=== PATIENT | male | born 1990 | race African-American/Black ===

== ENCOUNTER 2017-06-16 21:53 | Inpatient (IN) | payer OTHER ==
[2017-06-16] MEDS ORDERED: ONDANSETRON 4 MG/2 ML VIAL IVPB ONE (22:37)
[2017-06-16] MEDS ORDERED: SODIUM CHLORIDE 1,000 ML IV STA (22:37)
[2017-06-16] MEDS ORDERED: morphine CARPU-JECT 4 MG/1 ML DISP.SYRIN IVPUSH ONE (22:37)
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
[2017-06-16] MEDS ORDERED: ONDANSETRON 4 MG/2 ML VIAL ONE ×2 (22:58→23:15)
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
[2017-06-16] MEDS ORDERED: morphine CARPU-JECT 4 MG/1 ML DISP.SYRIN ONE (23:14)
[2017-06-16 23:18] LABS: BASOPHIL 0.5 % (0-2.0); EOSINOPHIL 1.1 % (0-4.5); MCH 26.1 pg (25.7-33.7); MEAN CELL VOLUME 78.9 fl (80-96); MEAN PLT VOLUME 8.4 fl (7.5-11.1); NEUTROPHILS 64.5 % (42.8-82.8); PLATELET COUNT 196 K/MM3 (134-434); RDW 13.7 % (11.9-15.9); WHITE BLOOD COUNT 11.3 K/mm3 (4.0-10.0)
[2017-06-16 23:29] LABS: URINE APPEARANCE CLOUDY; URINE BILIRUBIN NEGATIVE (NEGATIVE); URINE BLOOD 3+ (NEGATIVE); URINE GLUCOSE (UA) NEGATIVE (NEGATIVE); URINE KETONE NEGATIVE (NEGATIVE); URINE LEUK ESTERASE TRACE (NEGATIVE); URINE NITRITE NEGATIVE (NEGATIVE); URINE UROBILINOGEN NEGATIVE mg/dL (0.2-1.0)
[2017-06-16 23:36] LABS: URINE COLOR AMBER; URINE PROTEIN 2+ (NEGATIVE)
[2017-06-16 23:38] LABS: URINE MUCUS RARE; URINE RBC 2122 /hpf (0-3); URINE WBC 23 /hpf (3-5)
[2017-06-16 23:44] LABS: ALBUMIN 4.2 g/dl (3.4-5.0); ALK PHOS 71 U/L (45-117); ANION GAP 8 (8-16); BILIRUBIN,TOTAL 0.2 mg/dL (0.2-1.0); CALCIUM 9.3 mg/dL (8.5-10.1); CO2 30 mmol/L (21-32); CREATININE 1.6 mg/dL (0.7-1.3); GLUCOSE,RANDOM 91 mg/dL (74-106); SGOT/AST 25 U/L (15-37); SGPT/ALT 34 U/L (12-78); TOT PROT 7.7 g/dl (6.4-8.2)
[2017-06-17] MEDS ORDERED: morphine CARPU-JECT 4 MG/1 ML DISP.SYRIN IVPUSH ONE (00:50)
[2017-06-17] MEDS ORDERED: SODIUM CHLORIDE 1,000 ML IV SCH (01:00)
[2017-06-17] MEDS ORDERED: CEFTRIAXONE 1 GM in DEXTROSE 5%-WATER - 50 ML IVPB ONE (01:42)
[2017-06-17] MEDS ORDERED: morphine CARPU-JECT 4 MG/1 ML DISP.SYRIN IVPUSH PRN (01:49)
[2017-06-17] MEDS ORDERED: DEXTROSE 5%-0.45% SALINE 1,000 ML IV SCH (02:00)
[2017-06-17] MEDS ORDERED: CEFTRIAXONE 50 ML ONE (02:08)
[2017-06-17 05:48] VITALS: BMI 25.4
[2017-06-17 08:14] LABS: BASOPHIL 0.3 % (0-2.0); MCH 25.8 pg (25.7-33.7); MCHC 32.8 g/dl (32.0-35.9); MEAN CELL VOLUME 78.8 fl (80-96); MEAN PLT VOLUME 8.4 fl (7.5-11.1); NEUTROPHILS 58.4 % (42.8-82.8); PLATELET COUNT 190 K/MM3 (134-434); RDW 13.4 % (11.9-15.9); WHITE BLOOD COUNT 8.7 K/mm3 (4.0-10.0)
[2017-06-17 08:50] LABS: ALBUMIN 3.8 g/dl (3.4-5.0); ALK PHOS 70 U/L (45-117); ANION GAP 5 (8-16); BILIRUBIN,TOTAL 0.5 mg/dL (0.2-1.0); CALCIUM 8.8 mg/dL (8.5-10.1); CO2 31 mmol/L (21-32); CREATININE 1.3 mg/dL (0.7-1.3); GLUCOSE,RANDOM 69 mg/dL (74-106); SGOT/AST 24 U/L (15-37); SGPT/ALT 29 U/L (12-78)
[2017-06-17] MEDS ORDERED: cefTRIAXone SODIUM 1 GM VIAL ONE (09:43)
[2017-06-17] MEDS ORDERED: DEXTROSE 5%-WATER - 50 ML IVPB ONE (09:43)
[2017-06-17] MEDS ORDERED: CEFTRIAXONE 1 GM in DEXTROSE 5%-WATER - 50 ML IVPB SCH (10:00)
[2017-06-17] MEDS ORDERED: CEFTRIAXONE 1 GM in DEXTROSE 5%-WATER - 100 ML IVPB SCH (10:00)
[2017-06-17 15:53] VITALS: BP 118/57; PULSE 73; TEMP 98.1
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
== END 2017-06-17 16:52 | disposition left against medical advice (07) | DRG 465 ==
LOC: JER 21:53 → JERBED 06-17 01:45 → J5S 06-17 03:47
PROVIDERS: ADMIT Internal Medicine; ATTEND Internal Medicine
DX: N13.30 Unspecified hydronephrosis (principal); R10.9 Unspecified abdominal pain
CPT/HCPCS: 36415; 74176-TC; 80053; 81003; 81015; 83690; 85025; 87086; 99284-25

== ENCOUNTER 2017-07-01 22:55 | Emergency (ER) | payer OTHER ==
[2017-07-02 00:32] VITALS: BP 148/83; PULSE 81; TEMP 98.7; BMI 24.3
[2017-07-02] MEDS ORDERED: BUPIVACAINE HCL 0.25% 125 MG/50 ML VIAL INF ONE (01:15)
[2017-07-02] MEDS ORDERED: LIDOCAINE HCL 1%, 10 MG/ML (50 mL VIAL) INF ONE (01:15)
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
[2017-07-02] MEDS ORDERED: BUPIVACAINE HCL/PF 0.5% (5MG/ML) 10 ML VIAL ONE (01:22)
[2017-07-02] MEDS ORDERED: LIDOCAINE HCL 1%, 10 MG/ML (20ML VIAL) ONE (01:22)
[2017-07-02] MEDS ORDERED: KETOROLAC TROMETHAMINE 30 MG/1 ML VIAL IM ONE (01:24)
[2017-07-02] MEDS ORDERED: KETOROLAC TROMETHAMINE 30 MG/1 ML VIAL ONE (01:24)
== END 2017-07-02 02:00 | disposition home or self-care (01) ==
LOC: JER 22:55
PROC: 3E0233Z Introduction of Anti-inflammatory into Muscle, Percutaneous Approach (ICD-10-PCS; principal; 2017-07-01)
DX: K08.89 Other specified disorders of teeth and supporting structures (principal)
CPT/HCPCS: 99281-25

== ENCOUNTER 2017-08-13 21:19 | Emergency (ER) | payer OTHER ==
--- NOTE | 2017-08-13 21:44 | PDOC ---
Rapid Medical Evaluation Time Seen by Provider: 08/13/17 21:41 Medical Evaluation: Allergies Allergy/AdvReac Type Severity Reaction Status Date / Time No Known Allergies Allergy Verified 07/02/17 00:30 08/13/17 21:42 I have performed a brief in-person evaluation of this patient. The patient presents with a chief complaint of: hematuria Pertinent physical exam findings: right flank, pain on urination I have ordered the following: cbc, cmp, ua The patient will proceed to the ED for further evaluation. Discharge Disposition - Diagnosis Flank pain - Referrals Referrals: Kishan Daugherty MD [Primary Care Provider] - - Patient Instructions - Post Discharge Activity
[2017-08-13 21:46] VITALS: BP 117/70; PULSE 98; TEMP 98.1; BMI 25.8
[2017-08-13 22:06] LABS: URINE APPEARANCE CLOUDY; URINE BILIRUBIN NEGATIVE (NEGATIVE); URINE BLOOD 2+ (NEGATIVE); URINE COLOR YELLOW; URINE GLUCOSE (UA) NEGATIVE (NEGATIVE); URINE KETONE NEGATIVE (NEGATIVE); URINE NITRITE NEGATIVE (NEGATIVE); URINE PROTEIN 3+ (NEGATIVE); URINE UROBILINOGEN 4.0 E.U/dl mg/dL (0.2-1.0)
[2017-08-13 22:07] LABS: BASOPHIL 0.6 % (0-2.0); EOSINOPHIL 1.3 % (0-4.5); MCHC 32.6 g/dl (32.0-35.9); MEAN CELL VOLUME 79.8 fl (80-96); MEAN PLT VOLUME 8.6 fl (7.5-11.1); NEUTROPHILS 60.9 % (42.8-82.8); PLATELET COUNT 220 K/MM3 (134-434); RDW 14.2 % (11.9-15.9); WHITE BLOOD COUNT 9.4 K/mm3 (4.0-10.0)
[2017-08-13 22:09] LABS: URINE MUCUS FEW; URINE RBC 2040 /hpf (0-3); URINE WBC 40 /hpf (3-5)
--- NOTE | 2017-08-13 22:14 | PDOC ---
History of Present Illness - General Chief Complaint: Hematuria Stated Complaint: HEMATURIA Time Seen by Provider: 08/13/17 21:41 Past History - Past Medical History Allergies/Adverse Reactions: Allergies Allergy/AdvReac Type Severity Reaction Status Date / Time No Known Allergies Allergy Verified 08/13/17 21:46 Home Medications: Ambulatory Orders NK [No Known Home Medication] 06/17/17 Anemia: No Asthma: No Cancer: No Cardiac Disorders: No CVA: No COPD: No DVT: No Dementia: No Diabetes: No Dialysis: No GI Disorders: No Disorders: Yes (damaged ureter) HTN: No Hypercholesterolemia: No Kidney Stones: No Liver Disease: No Psychiatric Problems: No Seizures: No Thyroid Disease: No Lung CA: No - Surgical History Abdominal Surgery: No Appendectomy: No Cardiac Surgery: No Cholecystectomy: No Gastric Stapling: No GI Surgery: No Lung Surgery: No Neurologic Surgery: No - Suicide/Smoking/Psychosocial Hx Smoking History: Never smoked Have you smoked in the past 12 months: No Information on smoking cessation initiated: No Hx Alcohol Use: No Drug/Substance Use Hx: Yes Substance Use Type: Marijuana *Physical Exam - Vital Signs Last Vital Signs Temp Pulse Resp BP Pulse Ox 98.1 F 98 H 18 117/70 98 08/13/17 21:43 08/13/17 21:43 08/13/17 21:43 08/13/17 21:43 08/13/17 21:43 ED Treatment Course - LABORATORY CBC & Chemistry Diagram: 08/13/17 22:00 08/13/17 22:00 - ADDITIONAL ORDERS Additional order review: Laboratory Results 08/13/17 22:00 Urine Color Yellow Urine Appearance Cloudy Urine pH 7.0 Ur Specific [place] 1.025 Urine Protein 3+ H Urine Glucose (UA) Negative Urine Ketones Negative Urine Blood 2+ H Urine Nitrite Negative Urine Bilirubin Negative Urine Urobilinogen 4.0 e.u/dl Urine Mucus Few 08/13/17 22:00 RBC 5.62 H MCV 79.8 L MCHC 32.6 RDW 14.2 MPV 8.6 Neutrophils % 60.9 Lymphocytes % 32.9 Monocytes % 4.3 Eosinophils % 1.3 Basophils % 0.6 *DC/Admit/Observation/Transfer Diagnosis at time of Disposition: Flank pain - Referrals Referrals: Kishan Daugherty MD [Primary Care Provider] - - Patient Instructions - Post Discharge Activity - Attestations Physician Attestion: 08/13/17 22:14 I, Dr. Dylan Joyce, attest that this document has been prepared under my direction and personally reviewed by me in its entirety. I further attest, that it accurately reflects all work, treatment, procedures and medical decision -making performed by me.
--- NOTE | 2017-08-13 22:18 | PDOC ---
Attending Attestation - Resident Resident Name: Rafael Roman - ED Attending Attestation I have performed the following: I have examined & evaluated the patient, The case was reviewed & discussed with the resident, I agree w/resident's findings & plan, Exceptions are as noted - HPI HPI: 08/13/17 22:18 Flank Pain and Hematuria - Physicial Exam PE: 08/13/17 22:18 VSS/NAD - Medical Decision Making 08/13/17 22:18 I, Dr. Dylan Joyce, attest that this document has been prepared under my direction and personally reviewed by me in its entirety. I further attest, that it accurately reflects all work, treatment, procedures and medical decision -making performed by me. 08/13/17 22:[address] Rafael Roman's Assessment and Plan
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
[2017-08-13] MEDS ORDERED: SODIUM CHLORIDE 1,000 ML IV STA (22:32)
[2017-08-13 22:38] LABS: ANION GAP 6 (8-16); CALCIUM 8.6 mg/dL (8.5-10.1); CO2 30 mmol/L (21-32); CREATININE 1.4 mg/dL (0.7-1.3); GLUCOSE,RANDOM 126 mg/dL (74-106); SGOT/AST 23 U/L (15-37); SGPT/ALT 34 U/L (12-78)
[2017-08-13 22:40] LABS: ALK PHOS 68 U/L (45-117); BILIRUBIN,TOTAL 0.7 mg/dL (0.2-1.0); TOT PROT 7.4 g/dl (6.4-8.2)
[2017-08-14] MEDS ORDERED: AZITHROMYCIN 500 MG TABLET PO ONE (00:34)
[2017-08-14] MEDS ORDERED: AZITHROMYCIN 500 MG TABLET ONE (00:44)
[2017-08-14] MEDS ORDERED: cefTRIAXone SODIUM 1 GM VIAL IM ONE (00:45)
[2017-08-14 09:17] LABS: URINE LEUK ESTERASE 1+ (NEGATIVE)
== END 2017-08-14 01:15 | disposition home or self-care (01) ==
LOC: JER 21:19
PROC: 3E0337Z Introduction of Electrolytic and Water Balance Substance into Peripheral Vein, Percutaneous Approach (ICD-10-PCS; principal; 2017-08-13)
PROC: 3E02329 Introduction of Other Anti-infective into Muscle, Percutaneous Approach (ICD-10-PCS; 2017-08-13)
DX: N34.2 Other urethritis (principal); Z87.828 Personal history of other (healed) physical injury and trauma
CPT/HCPCS: 36415; 74176; 80053; 81003; 81015; 85025; 99281-25

== ENCOUNTER 2017-10-10 14:08 | Emergency (ER) | payer OTHER ==
[2017-10-10 14:17] VITALS: BP 127/76; PULSE 95; TEMP 98.1; BMI 24.3
--- NOTE | 2017-10-10 14:19 | PDOC ---
Rapid Medical Evaluation Time Seen by Provider: 10/10/17 14:14 Medical Evaluation: Allergies Allergy/AdvReac Type Severity Reaction Status Date / Time No Known Allergies Allergy Verified 08/13/17 21:46 10/10/17 14:15 I have performed a brief in-person evaluation of this patient. The patient presents with a chief complaint of: "I have blood in my urine." h/o uretal stent with multiple infections Pertinent physical exam findings: right flank tenderness I have ordered the following: UA, CBC, CMP The patient will proceed to the ED for further evaluation. Discharge Disposition - Diagnosis Flank pain - Referrals - Patient Instructions - Post Discharge Activity
[2017-10-10 14:43] LABS: BASO % 0.3 % (0-2.0); EOS % 0.9 % (0-4.5); HEMATOCRIT 47.2 % (35.4-49); HEMOGLOBIN 15.2 GM/dL (11.7-16.9); LYMPH % 29.1 % (8-40); MCH 25.6 pg (25.7-33.7); MCHC 32.2 g/dl (32.0-35.9); MEAN CELL VOLUME 79.4 fl (80-96); MEAN PLT VOLUME 8.1 fl (7.5-11.1); MONO % 4.3 % (3.8-10.2); NEUT % 65.4 % (42.8-82.8); PLATELET COUNT 232 K/MM3 (134-434); RBC 5.94 M/mm3 (4.00-5.60); RDW 13.6 % (11.9-15.9); WHITE BLOOD COUNT 6.6 K/mm3 (4.0-10.0)
[2017-10-10 15:01] LABS: ALBUMIN 4.4 g/dl (3.4-5.0); ALK PHOS 67 U/L (45-117); ANION GAP 7 (8-16); BILIRUBIN,TOTAL 0.4 mg/dL (0.2-1.0); BLOOD UREA NITROGEN 19 mg/dL (7-18); CALCIUM 8.9 mg/dL (8.5-10.1); CHLORIDE 107 mmol/L (98-107); CO2 26 mmol/L (21-32); CREATININE 1.2 mg/dL (0.7-1.3); GLUCOSE,RANDOM 87 mg/dL (74-106); POTASSIUM 4.2 mmol/L (3.5-5.1); SGOT/AST 20 U/L (15-37); SGPT/ALT 27 U/L (12-78); SODIUM 140 mmol/L (136-145); TOT PROT 7.8 g/dl (6.4-8.2)
== END 2017-10-10 19:59 | disposition home or self-care (01) ==
LOC: JER 14:08
DX: R10.31 Right lower quadrant pain (principal); Z96.0 Presence of urogenital implants
CPT/HCPCS: 36415; 80053; 85025; 87086; 99281-25

== ENCOUNTER 2017-10-20 23:24 | Emergency (ER) | payer OTHER ==
[2017-10-20 23:27] VITALS: BP 143/71; PULSE 89; TEMP 97.9; BMI 24.3
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
[2017-10-21 02:21] LABS: BASO % 0.6 % (0-2.0); EOS % 1.5 % (0-4.5); HEMATOCRIT 45.7 % (35.4-49); HEMOGLOBIN 15.1 GM/dL (11.7-16.9); LYMPH % 42.1 % (8-40); MCH 26.2 pg (25.7-33.7); MCHC 32.9 g/dl (32.0-35.9); MEAN CELL VOLUME 79.7 fl (80-96); MEAN PLT VOLUME 8.3 fl (7.5-11.1); MONO % 6.7 % (3.8-10.2); NEUT % 49.1 % (42.8-82.8); PLATELET COUNT 218 K/MM3 (134-434); RBC 5.74 M/mm3 (4.00-5.60); RDW 13.4 % (11.9-15.9); WHITE BLOOD COUNT 8.1 K/mm3 (4.0-10.0)
[2017-10-21 02:46] LABS: ALBUMIN 4.1 g/dl (3.4-5.0); ALK PHOS 67 U/L (45-117); ANION GAP 9 (8-16); BILIRUBIN,TOTAL 0.3 mg/dL (0.2-1.0); BLOOD UREA NITROGEN 18 mg/dL (7-18); CALCIUM 9.4 mg/dL (8.5-10.1); CHLORIDE 104 mmol/L (98-107); CO2 28 mmol/L (21-32); CREATININE 1.1 mg/dL (0.7-1.3); GLUCOSE,RANDOM 87 mg/dL (74-106); POTASSIUM 4.1 mmol/L (3.5-5.1); SGOT/AST 15 U/L (15-37); SGPT/ALT 26 U/L (12-78); SODIUM 141 mmol/L (136-145); TOT PROT 7.6 g/dl (6.4-8.2)
[2017-10-21] MEDS ORDERED: CEFTRIAXONE 1 GM in DEXTROSE 5%-WATER - 50 ML IVPB ONE (03:30)
[2017-10-21 03:31] LABS: URINE APPEARANCE CLEAR; URINE BILIRUBIN NEGATIVE (NEGATIVE); URINE BLOOD 2+ (NEGATIVE); URINE COLOR YELLOW; URINE GLUCOSE (UA) NEGATIVE (NEGATIVE); URINE KETONE NEGATIVE (NEGATIVE); URINE NITRITE NEGATIVE (NEGATIVE); URINE UROBILINOGEN 4.0 E.U/dl mg/dL (0.2-1.0)
[2017-10-21] MEDS ORDERED: DOXYCYCLINE HYCLATE 100 MG CAPSULE PO ONE (03:31)
[2017-10-21 03:32] LABS: URINE LEUK ESTERASE 3+ (NEGATIVE); URINE PROTEIN 1+ (NEGATIVE)
[2017-10-21] MEDS ORDERED: AZITHROMYCIN 1 GM PACKET PO ONE (03:34)
[2017-10-21] MEDS ORDERED: PHENAZOPYRIDINE HCL 100 MG TABLET (FP) PO ONE (03:36)
[2017-10-21] MEDS ORDERED: PHENAZOPYRIDINE HCL 100 MG TABLET (FP) ONE ×2 (03:47→04:08)
[2017-10-21] MEDS ORDERED: LIDOCAINE HCL 1%, 10 MG/ML (20ML VIAL) ONE (03:57)
[2017-10-21] MEDS ORDERED: AZITHROMYCIN 500 MG TABLET ONE (04:08)
== END 2017-10-21 04:12 | disposition home or self-care (01) ==
LOC: JER 23:24
DX: N39.0 Urinary tract infection, site not specified (principal); N34.2 Other urethritis
CPT/HCPCS: 36415; 80053; 81003; 85025; 87491; 87591; 96372; 99282-25

== ENCOUNTER 2017-11-11 11:35 | Emergency (ER) | payer OTHER ==
[2017-11-11 11:53] VITALS: BMI 24.3
[2017-11-11] MEDS ORDERED: ONDANSETRON 4 MG/2 ML VIAL IVPUSH ONE (12:46)
[2017-11-11] MEDS ORDERED: SODIUM CHLORIDE 1,000 ML IV SCH (13:00)
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
--- NOTE | 2017-11-11 13:15 | PDOC ---
History of Present Illness - General Chief Complaint: Pain, Acute Stated Complaint: KIDNEY PAIN Time Seen by Provider: 11/11/17 12:25 History Source: Patient Exam Limitations: No Limitations - History of Present Illness Initial Comments: 11/11/17 12:55 26 y/o M with PMH R ureteral stent revision (Dat Guillermo, last revision at [facility] by Dr. Wayne) s/p surya (2014), who presents to the ED c/o R flank pain over the past day. As per pt, yesterday he suddenly developed constant, R sided, 10/10 throbbing flank pain that radiated to his back. His pain was exacerbated with movement, and was not alleviated with Tylenol. Pt states that he was in pain "during the whole cab ride to the hospital." During this time, he also had a subjective fever. Over the past month, pt has also endorsed intermittent dysuria and hematuria. Pt denies MORROW, chills, SOB, abdominal pain, or changes in bowel function. PMH: denies hx nephrolithiasis PsxH: R ureteral stent revision (Dat Guillermo, last revision at [facility] by Dr. Wayne) s/p surya (2015) meds: denies allergies: NKDA FH: denies SH: works at [employer]. denies cigarette use, social drinker, smokes marijuana daily Past History - Past Medical History Allergies/Adverse Reactions: Allergies Allergy/AdvReac Type Severity Reaction Status Date / Time No Known Allergies Allergy Verified 11/11/17 11:48 Home Medications: Ambulatory Orders Levofloxacin [Levaquin] 750 mg PO DAILY #7 tablet 11/11/17 Anemia: No Asthma: No Cancer: No Cardiac Disorders: No CVA: No COPD: No DVT: No Dementia: No Diabetes: No Dialysis: No GI Disorders: No Disorders: Yes (damaged ureter, R STENT) HTN: No Hypercholesterolemia: No Kidney Stones: No Liver Disease: No Psychiatric Problems: No Seizures: No Thyroid Disease: No Lung CA: No - Surgical History Abdominal Surgery: No Appendectomy: No Cardiac Surgery: No Cholecystectomy: No Gastric Stapling: No GI Surgery: No Lung Surgery: No Neurologic Surgery: No - Suicide/Smoking/Psychosocial Hx Smoking History: Never smoked Have you smoked in the past 12 months: No Hx Alcohol Use: No Drug/Substance Use Hx: No Substance Use Type: None Review of Systems - Review of Systems Able to Perform ROS?: Yes Constitutional: Yes: Fever ABD/GI: Yes: Other (R flank pain) : Yes: Dysuria, Hematuria *Physical Exam - Vital Signs Last Vital Signs Temp Pulse Resp BP Pulse Ox 98.4 F 94 H 17 122/84 96 11/11/17 11:48 11/11/17 11:48 11/11/17 11:48 11/11/17 11:48 11/11/17 11:48 - Physical Exam General Appearance: Yes: Mild Distress, Other (appears uncomfortable) HEENT: positive: EOMI, JUNE, Pharynx Normal Neck: positive: Supple Respiratory/Chest: positive: Lungs Clear, Normal Breath Sounds Cardiovascular: positive: Regular Rhythm, Regular Rate, Tachycardia Vascular Pulses: Dorsalis-Pedis (R): 2+, Doralis-Pedis (L): 2+ Gastrointestinal/Abdominal: positive: Other (R flank TTP, + R CVA tenderness) Neurologic: positive: hospice team lead II-XII NML intact ED Treatment Course - LABORATORY CBC & Chemistry Diagram: 11/11/17 13:08 11/11/17 13:08 - RADIOLOGY Radiology Studies Ordered: Category Date Time Status SPIRAL- RENAL-STONE CT [CT] Stat CT Scan 11/11/17 12:45 Ordered Medical Decision Making - Medical Decision Making 11/11/17 13:22 26 y/o M with PMH R ureteral stent revision (Dat Guillermo, last revision at [facility] by Dr. Wayne) s/p surya (2015), who presents to the ED c/o R flank pain over the past day. Pt with hematuria and dysuria over the past month. Currenly, pt mildly tachycardic (94), however afebrile , hemodynamically stable. Current differentials include pyelonephritis, obstruction from R kidney stone, damage to R ureteral stent. Will evaluate with urine studies, lipase to r /o acute pancreatitis as pt with flank pain radiating to back. Will also get spiral renal CT to evaluate for any stone, block, possible hydronephrosis. Will order the following UCx UA CBC CMP Lipase Spiral-renal CT Will give the following Morphine for pain Zofran x 1 If needs more zofran, recommend EKG IV NS 100 cc/hr 11/11/17 14:59 Most likely pyelonephritis. Pt given Levaquin 750mgx [address] report - 11/11/17 15:37 urine returned 2+ urine protein, 3+ blood, 2+ leuk esterase, 21 WBCs 11/11/17 16:58 complicated pyelo, CT reveals increased R sided hydronephrosis. Will consult Dr. Heydi Daugherty- urology Blood cx - to be drawn, will give zosyn 3.375 x 1 11/11/17 17:[address] Mehdi boswell for admission. Med-surg 11/11/17 23:49 Pt leaving AMA. Risks associated with departure discussed, expressed understanding. Form filled out The patient presented with pyelonephritis. I am concerned that this may be fatal , lead to worsening infection, sepsis. The patient has verbalized understanding of my concerns. The patient is clinically sober and appears free from distracting injury. The patient appears to be have intact insight, judgment, and reason. In my opinion, this patient has the capacity to make decisions. The risks of leaving against medical advice without further evaluation treatment were discussed with the patient. These risks include , permanent disability. The patient indicated understanding of these risks and appeared to have the capacity to make this decision. The patient is unwilling to stay for his admission which would include IV antibiotics. He is unwilling to remain for further monitoring. He is refusing further care and leaving against medical advice. I am unable to convince the patient to stay. I have asked the patient to return as soon as possible to complete his evaluation. *DC/Admit/Observation/Transfer Diagnosis at time of Disposition: Pyelonephritis, acute - Discharge Dispostion Disposition: AGAINST MEDICAL ADVICE Condition at time of disposition: Guarded Admit: No - Prescriptions Prescriptions: Levofloxacin [Levaquin] 750 mg PO DAILY #7 tablet - Referrals Referrals: Kishan Daugherty MD [Primary Care Provider] - - Patient Instructions - Post Discharge Activity Activity Comments: 11/11/17 23:43 You were in the hospital because you had a urinary infection that spread to your kidney. We recommend that you drink plenty of fluids and rest. While there is no equivalent to the IV antibiotic you would receive in the hospital, since you are leaving against medical advice, we would like you to take an antibiotic Levaquin - one pill a day for the next 7 days for your condition. Please follow up with your primary care doctor/urologist in a week. If you develop fever, chills, or severe abdominal pain, please return to the hospital.
[2017-11-11 13:25] LABS: BASO % 0.6 % (0-2.0); EOS % 3.7 % (0-4.5); HEMATOCRIT 45.8 % (35.4-49); HEMOGLOBIN 14.7 GM/dL (11.7-16.9); LYMPH % 28.5 % (8-40); MCH 25.5 pg (25.7-33.7); MCHC 32.1 g/dl (32.0-35.9); MEAN CELL VOLUME 79.2 fl (80-96); MEAN PLT VOLUME 8.1 fl (7.5-11.1); MONO % 13.3 % (3.8-10.2); NEUT % 53.9 % (42.8-82.8); PLATELET COUNT 197 K/MM3 (134-434); RBC 5.78 M/mm3 (4.00-5.60); RDW 13.6 % (11.9-15.9); WHITE BLOOD COUNT 4.3 K/mm3 (4.0-10.0)
[2017-11-11] MEDS ORDERED: morphine CARPU-JECT 2 MG/1 ML DISP.SYRIN IVPUSH ONE (13:25)
[2017-11-11 14:22] LABS: ALBUMIN 3.9 g/dl (3.4-5.0); ANION GAP 8 (8-16); BILIRUBIN,TOTAL 0.4 mg/dL (0.2-1.0); BLOOD UREA NITROGEN 14 mg/dL (7-18); CALCIUM 8.9 mg/dL (8.5-10.1); CHLORIDE 104 mmol/L (98-107); CO2 28 mmol/L (21-32); CREATININE 1.3 mg/dL (0.7-1.3); GLUCOSE,RANDOM 81 mg/dL (74-106); SGOT/AST 22 U/L (15-37); SGPT/ALT 24 U/L (12-78); SODIUM 140 mmol/L (136-145); TOT PROT 7.4 g/dl (6.4-8.2)
[2017-11-11 14:23] LABS: ALK PHOS 64 U/L (45-117)
[2017-11-11 14:23] LABS: URINE APPEARANCE CLEAR; URINE BILIRUBIN NEGATIVE (NEGATIVE); URINE BLOOD 3+ (NEGATIVE); URINE COLOR YELLOW; URINE GLUCOSE (UA) NEGATIVE (NEGATIVE); URINE KETONE NEGATIVE (NEGATIVE); URINE NITRITE NEGATIVE (NEGATIVE); URINE UROBILINOGEN 4.0 E.U/dl mg/dL (0.2-1.0)
[2017-11-11 14:25] LABS: URINE LEUK ESTERASE 2+ (NEGATIVE); URINE PROTEIN 2+ (NEGATIVE)
[2017-11-11 14:27] LABS: URINE MUCUS FEW
[2017-11-11] MEDS ORDERED: MORPHINE SULFATE 10 MG/1 ML *VIAL ONE (14:28)
[2017-11-11] MEDS ORDERED: ONDANSETRON 4 MG/2 ML VIAL ONE (14:29)
[2017-11-11] MEDS ORDERED: PIPERACILLIN/TAZOB 3.375 GM/50 ML PRE-DOCKED IVPB ONE (16:53)
[2017-11-11] MEDS ORDERED: PIPERACILLIN/TAZOB 3.375 GM 3.375 GM/50 ML BAG IVPB ONE (18:37)
[2017-11-11 18:38] VITALS: BP 117/53; PULSE 81; TEMP 98.6
== END 2017-11-11 23:57 | disposition left against medical advice (07) ==
LOC: JER 11:35 → UNDOADMIN 17:40 → JERBED 17:40 → JER 23:57
PROC: 3E0337Z Introduction of Electrolytic and Water Balance Substance into Peripheral Vein, Percutaneous Approach (ICD-10-PCS; principal; 2017-11-11)
PROC: 3E03329 Introduction of Other Anti-infective into Peripheral Vein, Percutaneous Approach (ICD-10-PCS; 2017-11-11)
PROC: 3E03329 Introduction of Other Anti-infective into Peripheral Vein, Percutaneous Approach (ICD-10-PCS; 2017-11-11)
DX: N10 Acute pyelonephritis (principal)
CPT/HCPCS: 36415; 74176; 80053; 81003; 81015; 83690; 85025; 87040; 87086; 96361; 96365; 96367; 96375; 99283-25